=== PATIENT | female | born 1970 | race African-American/Black ===

== ENCOUNTER 2016-09-18 22:00 | Inpatient (IN) | payer OTHER ==
--- NOTE | ~2016-09-18 | PN ---
Unit #: [id number] #: [id number] Patient: LUDMILA SOLIS [id number] [facility] [address] [place] [address] [id number] MR#: [id number] NAME: LUDMILA SOLIS ROOM: 13 Age: 46 Sex: F Admission Date: 09/19/2016 : 1970 Attending Physician: Tyaler Card M.D. Admitting Physician: Tayler Card M.D. Primary Care Physician: Primary Care Physician Rivka MENDOZA PROGRESS NOTES DATE 09/20/2016 DISCUSSION Ms. Solis is a 46-year-old white female who was seen today and chart was reviewed and case was discussed with the staff. She seemed to be anxious, withdrawn, depressed and rather seclusive to herself. Meanwhile, she has been cooperative with treatment recommendations as she has been taking the medications and tolerating them fairly well with no reported side effects. MENTAL STATUS EXAMINATION Middle-aged white female who was casually dressed with fair personal hygiene, appears to be in no acute distress or discomfort. She was awake and alert on interaction with intact orientation. Her mood was anxious and depressed with congruent affect. She denies any suicidal or homicidal ideations. Her insight and judgement remains slightly impaired. TREATMENT PLAN 1. We will continue her on her current medications and treatment protocol. We will monitor her response to the medication and make further adjustments as needed. 2. We will continue to follow up. Dictated by... Marty Diaz/bruce TD: 09/21/2016 03:00 JOB #: [id number] Unit #: [id number] #: [id number] Patient: LUDMILA SOLIS PEAADELSO PROGRESS NOTES Page 1 of 1 X Tayler Card MD PROGRESS NOTE
--- NOTE | ~2016-09-18 | PA ---
Unit #: [id number] #: [id number] Patient: LUDMILA SEALS [id number] [facility] [address] [place] [address] [id number] I MR#: [id number] NAME: LUDMILA SEALS ROOM: P113 Age: 46 Sex: F Admission Date: 09/19/2016 : 1970 Date of Assessment: Attending Physician: Tayler Card M.D. Admitting Physician: Tayler Card M.D. PSYCHIATRIC ASSESSMENT DATE OF SERVICE 09/19/2016. IDENTIFYING DATA Ms. Seals is a 46-year-old female, who is a resident of [place], [place], and was transferred to us from [facility]. CHIEF COMPLAINT "I've been hearing voices telling me to harm myself and others." HISTORY OF PRESENT ILLNESS Ms. Seals is a 46-year-old female with long history of chronic mental illness, who was transferred to us from [facility], where she was brought in reporting increasing depression and command auditory hallucinations and voices telling her to hurt herself and hurt others and reports that she would take a lot of pills or hang herself to hurt herself and asked clinician how to hang herself because she is not sure how to do that and was very sporadic with thoughts and was seen to be disorganized with flight of ideas, looseness of association, moving from one tangent to another, and was a poor historian and was seen to be a significant threat to herself and others, and as such, a recommendation for inpatient level of care for safety and stabilization was made and the patient was medically cleared at the [facility] and then transferred to . 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 PAST PSYCHIATRIC HISTORY The patient has had a history of inpatient psychiatric hospitalization at [facility] and has had outpatient treatment in the past and has been diagnosed and treated for mood disorder on the line of bipolar, and review of the medical records indicate currently she is on a combination of Prozac and Seroquel, but does not appear to be showing a therapeutic response to medications. PAST MEDICAL HISTORY Seizure disorder, gastroesophageal reflux disease, and coronary artery disease. ALLERGIES Unit #: [id number] #: [id number] Patient: LUDMILA SEALS Coreg, ibuprofen, and penicillin. PERSONAL AND SOCIAL HISTORY A 46-year-old female, who reports that she is single, unemployed, and lives by herself and has poor social support system. MENTAL STATUS EXAMINATION Middle-aged female, who was casually dressed with fair personal hygiene, appears to be in no acute distress or discomfort. She was awake and alert on interaction with intact orientation to time, place, and person. Her mood was anxious and depressed with a congruent affect. Her speech was slow and restricted in content. Her thought processes were disorganized with some looseness of associations, flight of ideas, paranoid ideations, and suicidal as well as homicidal ideations. Her insight and judgment remain significantly impaired. DIAGNOSTIC IMPRESSION Psychiatric: Bipolar disorder, most recent episode depressed, recurrent, moderate, with psychosis. Medical: Hypertension, seizure disorder, and gastroesophageal reflux disease. Stressors: Moderate psychosocial stressors. TREATMENT PLAN 1. The patient has presented with a history of mood disorder and psychosis and has been decompensating and will need inpatient hospitalization for safety and stabilization. We will start her back on her home medications. We will adjust the medications and monitor response. 2. Supportive therapy was provided to the patient. 3. Safe, structured, and nourishing environment will be provided. ESTIMATED LENGTH OF STAY 5 to 7 days. ABILITY TO HELP SELF Limited. WILLINGNESS TO HELP SELF The patient appears to be willing to help self. STRENGTHS 1. Communicative. 2. Cooperative. PROBLEMS 1. Chronic dysphoric symptoms. 2. Poor social support system. DISCHARGE CRITERIA This will be contingent upon the patient's ability to show resolution of her depression and anxiety and psychosis and her ability to stay safe to herself, particularly after discharge from the hospital. Dictated by... Tayler Card M.D. IAA/modl Unit #: [id number] #: [id number] Patient: LUDMILA SEALS TD: 09/20/2016 16:00 JOB #: [id number] PSYCHIATRIC ASSESSMENT Page 1 of 1 X Tayler Card MD PSYCHIATRIC ASSESSMENT
--- NOTE | ~2016-09-18 | PN ---
Unit #: [id number] #: [id number] Patient: LUDMILA SOLIS [id number] [facility] [address] [place] [address] [id number] I MR#: [id number] NAME: LUDMILA SOLIS ROOM: [facility] Age: 46 Sex: F Admission Date: 09/19/2016 : 1970 Attending Physician: Tayler Card M.D. Admitting Physician: Tayler Card M.D. Primary Care Physician: Primary Care Physician Rivka MENDOZA PROGRESS NOTES DATE 09/23/2016 DISCUSSION Ms. Solis is a 46-year-old female who was seen today and chart was reviewed and case was discussed with the staff. She has been anxious, withdrawn and rather seclusive to herself. Meanwhile, she has been cooperative with treatment recommendations as she has been taking the medications and tolerating them fairly well with no reported side effects. MENTAL STATUS EXAMINATION Middle-aged female who was casually dressed with fair personal hygiene, appears to be in no acute distress or discomfort. She was awake and alert on interaction with intact orientation. Her mood was anxious with congruent affect. She denies any suicidal or homicidal ideations. Also, denies any auditory or visual hallucinations. Her insight and judgement remains slightly impaired. TREATMENT PLAN 1. We will continue her on her current medications and treatment protocol. We will monitor her response to the medication and make further adjustments as needed. 2. We will continue to follow up. Dictated by... Marty Diaz/bruce TD: 09/24/2016 02:32 JOB #: [id number] Unit #: [id number] #: [id number] Patient: LUDMILA SOLIS PROGRESS NOTES Page 1 of 1 X Tayler Card MD X PROGRESS NOTE
--- NOTE | ~2016-09-18 | PN ---
Unit #: [id number] #: [id number] Patient: LUDMILA SOLIS [id number] [facility] [address] [place] [address] [id number] I MR#: [id number] NAME: LUDMILA SOLIS ROOM: [facility] Age: 46 Sex: F Admission Date: 09/19/2016 : 1970 Attending Physician: Tayler Card M.D. Admitting Physician: Tayler Card M.D. Primary Care Physician: Primary Care Physician Rivka MENDOZA PROGRESS NOTES DATE September 21, 2016 DISCUSSION Ms. Solis is a 46-year-old female, with mood disorder and psychosis, who was seen today and chart was reviewed and the case was discussed with the staff. She has been anxious, withdrawn, disorganized, and rather seclusive to herself. Meanwhile, she has been cooperative with the treatment recommendations and she has been taking the medications and tolerating them fairly well with no reported side effects. MENTAL STATUS EXAMINATION Middle-aged female, who was casually dressed with fair personal hygiene and appears to be in no acute distress or discomfort. She was awake and alert with impaired attention and concentration. Her mood was anxious with a congruent affect. Her speech is slow and tangential. Her thought processes are disorganized with some looseness of associations. Her insight and judgment remain significantly impaired. TREATMENT PLAN 1. We will continue her on her current medications and treatment protocol, and will monitor her response to the medications, and make further adjustments as needed. 2. We will continue to followup. Dictated by... Marty Diaz/geovanny TD: 09/22/2016 12:32 JOB #: [id number] Unit #: [id number] #: [id number] Patient: LUDMILA SOLIS AUSTYNADELSO PROGRESS NOTES Page 1 of 1 X Tayler Card MD PROGRESS NOTE
--- NOTE | ~2016-09-18 | PN ---
Unit #: [id number] #: [id number] Patient: LUDMILA SOLIS [id number] [facility] [address] [place] [address] [id number] I MR#: [id number] NAME: LUDMILA SOLIS ROOM: [facility] Age: 46 Sex: F Admission Date: 09/19/2016 : 1970 Attending Physician: Tayler Card M.D. Admitting Physician: Tayler Card M.D. Primary Care Physician: Primary Care Physician Rivka MENDOZA PROGRESS NOTES DATE 09/24/2016 DISCUSSION Ms. Solis is a 46-year-old female who was seen today and chart was reviewed and case was discussed with the staff. She has been anxious, withdrawn and rather seclusive to herself and appears to be quite disorganized with flight of ideas and difficulty carrying on any meaningful conversation. Meanwhile, she has been taking medications and tolerating them fairly well with no reported side effects. MENTAL STATUS EXAMINATION Middle-aged female who was casually dressed with fair personal hygiene and appears to be in no acute distress or discomfort. She was awake and alert with impaired attention and concentration. Her mood was anxious with congruent affect. She denies any suicidal or homicidal ideations and also denies any auditory or visual hallucinations. Her insight and judgement remains slightly impaired. TREATMENT PLAN 1. Will continue on current medications and treatment protocol. Will monitor her response and make further adjustments as needed. 2. Will continue to follow up. Dictated by... Marty Diaz/naren TD: 09/24/2016 15:46 JOB #: [id number] Unit #: [id number] #: [id number] Patient: LUDMILA SOLIS PEAADELSO PROGRESS NOTES Page 1 of 1 X Tayler Card MD PROGRESS NOTE
--- NOTE | ~2016-09-18 | DS ---
Unit #: [id number] #: [id number] Patient: LUDMILA SEALS [id number] [facility] [address] [place] [address] [id number] I MR#: [id number] NAME: LUDMILA SEALS ROOM: 14 Age: 46 Sex: F Admission Date: 09/19/2016 : 1970 Discharge Date: 09/24/2016 Attending Physician: Tayler Card M.D. Primary Care Physician: Primary Care Physician No DISCHARGE SUMMARY IDENTIFYING DATA Ms. Seals is a 46-year-old white female with history of mood disorder, who was self-referred to the hospital on a voluntary basis. DISCHARGE DIAGNOSES Psychiatric: Bipolar disorder, most recent episode depressed, recurrent, moderate psychosis. Medical: Obesity, seizure disorder, hypertension, chronic obstructive pulmonary disease, dyslipidemia, history of anemia. Stressors: Moderate psychosocial stressors. HISTORY OF PRESENT ILLNESS Please see initial psychiatric evaluation for details. PAST PSYCHIATRIC HISTORY Please see initial psychiatric evaluation for details. PAST MEDICAL HISTORY Please see initial psychiatric evaluation for details. HOSPITAL COURSE The [facility] and was oriented to the hospital environment. Routine p.r.n. medications were initiated and was started back on home medications. Medications were adjusted and she was closely monitored. She was taking the medication regularly and tolerating them fairly well and was able to show a decent and therapeutic response with improvement in depression and anxiety and was denying any suicidal ideations, intent, or plan and was not seen to be danger to self or anyone else and as such, it was decided that she will be discharged home and will continue treatment on an outpatient basis. DISCHARGE CONDITION Stable. PROGNOSIS Fair. Dictated by... Tayler Card M.D. Unit #: [id number] #: [id number] Patient: LUDMILA SEALS IAA/modl TD: 10/29/2016 07:34 JOB #: [id number] DISCHARGE SUMMARY Page 1 of 1 X Tayler Card MD X DISCHARGE SUMMARY
--- NOTE | ~2016-09-18 | PN ---
Unit #: [id number] #: [id number] Patient: LUDMILA SOLIS [id number] [facility] [address] [place] [address] [id number] I MR#: [id number] NAME: LUDMILA SOLIS ROOM: 14 Age: 46 Sex: F Admission Date: 09/19/2016 : 1970 Attending Physician: Tayler Card M.D. Admitting Physician: Tayler Card M.D. Primary Care Physician: Primary Care Physician Rivka PETTIT NOTES DATE 09/22/2016 DISCUSSION Ms. Solis is a 46-year-old female who was seen today and chart was reviewed and case was discussed with the staff. She has been anxious, withdrawn and seclusive to herself. Meanwhile, she has been anxious, withdrawn and rather seclusive to herself. Meanwhile, she has been cooperative with treatment recommendations as she has been taking the medications and tolerating them fairly well with no reported side effects. MENTAL STATUS EXAMINATION Middle-aged female who was casually dressed with fair personal hygiene, appears to be in no acute distress or discomfort. She was awake and alert with impaired attention and concentration. Her mood was anxious with a congruent affect. Her thought processes were disorganized with some looseness of associations and flight of ideas and paranoid ideations. Her insight and judgement remains significantly impaired. TREATMENT PLAN 1. We will continue her on her current medications and treatment protocol. We will monitor her response and make further adjustments as needed. 2. We will continue to follow up. Dictated by... Marty Diaz/bruce TD: 09/23/2016 04:08 JOB #: [id number] Unit #: [id number] #: [id number] Patient: LUDMILA SOLIS PEAADELSO PROGRESS NOTES Page 1 of 1 X Tayler Card MD PROGRESS NOTE
--- NOTE | ~2016-09-18 | HP ---
Unit #: [id number] #: [id number] Patient: LUDMILA SEALS [id number] [place] [address] [id number] I MR#: [id number] NAME: LUDMILA SEALS ROOM: P113 Age: 46 Sex: F Admission Date: 09/19/2016 : 1970 Attending Physician: Tayler Card M.D. Admitting Physician: Tayler Card M.D. Primary Care Physician: Primary Care Physician No HISTORY AND PHYSICAL HISTORY OF PRESENT ILLNESS Ludmila is a 46 year old admitted to [address] [place] [address] reporting auditory hallucinations telling her to hurt herself. PAST MEDICAL HISTORY 1. Morbid obesity. 2. Seizure disorder. 3. High blood pressure. 4. COPD. 5. Chronic anticoagulation therapy. 6. Hyperlipidemia. 7. History of anemia. 8. Overactive bladder. PAST SURGICAL HISTORY 1. Mitral valve replaced, mechanical valve. 2. Inguinal hernia. 3. Oral. ALLERGIES Penicillin, ibuprofen. SOCIAL HISTORY She denies cigarettes, alcohol and illicit drug use. FAMILY HISTORY Medically noncontributory. REVIEW OF SYSTEMS CONSTITUTIONAL: No fever or chills. HEENT: Denies any sore throat, ear pain or runny nose. CARDIOVASCULAR: Denies chest pain, irregular heart rhythm or palpitations. CHEST: Denies shortness of breath or cough. No hemoptysis. GASTROINTESTINAL: Denies nausea, vomiting, diarrhea or chronic constipation. ENDOCRINE: Denies history of increased thirst or urination. No recent significant weight loss or gain. GENITOURINARY: Denies dysuria, frequency, or hematuria. SKIN: Denies any rashes. HEMATOLOGIC: Denies history of increased bleeding or bruising. MUSCULOSKELETAL: Denies any hot, swollen joints. No generalized muscle pain. NEUROLOGIC: Denies problems with vision or speech. No frequent, severe Unit #: [id number] #: [id number] Patient: LUDMILA SEALS headaches. No numbness, tingling or weakness in any extremities. Denies loss of bladder or bowel control. CURRENT MEDICATIONS 1. Protonix 40 mg daily. 2. Detrol 4 mg daily. 3. Lasix 40 mg daily. 4. Ferrous gluconate 324 mg daily. 5. Norvasc 5 mg daily. 6. Prozac 60 mg daily. 7. Aspirin 81 mg daily. 8. Lipitor 10 mg daily. 9. Desyrel 100 mg q.h.s. 10. Seroquel 200 mg q.h.s. 11. Carafate 1 gram b.i.d. 12. Trileptal 150 mg b.i.d. 13. Keppra 500 mg b.i.d. 14. Coreg 12.5 mg b.i.d. 15. Coumadin 7 mg daily. PHYSICAL EXAMINATION GENERAL: Alert, morbidly obese, in no apparent distress. VITAL SIGNS: Blood pressure 114/98, heart rate 100, respirations 16, temperature 98.6. WEIGHT: 210. HEIGHT: 5 feet 9 inches. SKIN: Warm and dry without rash or lesion. HEENT: Normocephalic. TMs not viewed. Oral and nasal passages clear. Conjunctivae clear. PERRLA. EOMs intact. NECK: Supple without lymphadenopathy or thyromegaly. HEART: Rate and rhythm is regular with mechanical click noted. LUNGS: Clear. ABDOMEN: Soft, nontender. : Not done. EXTREMITIES: No evidence of cyanosis, clubbing or edema. Moves all without focal deficit. NEUROLOGICAL: Grossly within normal limits. Cranial Nerves: II: Visual nguyễn are intact. III, IV AND : Extraocular movements are intact. Pupils are equal, round and reactive to light. V: Facial sensation is grossly normal. VII: Facial movements and expression are normal. VIII: Auditory acuity grossly intact. IX, X: Uvula is midline. Phonation is normal. XI: Patient shrugs shoulders and turns head normally. XII: Tongue protrudes in the midline. Sensory and Motor Function: Sensory and motor sensation is grossly normal. Motor: moves all extremities well. Coordination: Gait is normal. Deep Tendon Reflexes: Intact. IMPRESSION Psychiatric admission. RECOMMENDATIONS PSYCHIATRIC: Per psychiatrist. MEDICAL: 1. See no contraindication to participate in facility's activities. 2. Continue Protonix, Detrol, Lasix, ferrous gluconate, Norvasc, aspirin, Lipitor, Carafate, Keppra, Coreg, and Coumadin. Check Unit #: [id number] #: [id number] Patient: LUDMILA SEALS PT/INR, CBC and BMP. MEDICAL PROGNOSIS Good. MEDICAL CONDITION Stable. Dictated by... Avis Lehman P.A.-C. for Marty Erwin/naren TD: 09/20/2016 15:21 JOB #: [id number] HISTORY AND PHYSICAL Page 1 of 1 X Avis Lehman X HISTORY AND PHYSICAL
--- NOTE | ~2016-09-18 | CO ---
Unit #: [id number] #: [id number] Patient: LUDMILA ESALS [id number] [place] [address] [id number] MR#: [id number] NAME: LUDMILA SEALS ROOM: P114 Age: 46 Sex: F Admission Date: 09/19/2016 : 1970 Attending Physician: Tayler Card M.D. Primary Care Physician: Primary Care Physician No Consultation Date: 09/20/2016 CONSULTATION REPORT Ordering provider is Dr. Card. REASON FOR CONSULT Congestion. SUBJECTIVE According to nursing, the patient has been complaining about congestion and cough, and that she can't reason read for about a day. When I approached, the patient asked her symptoms. She refused to talk to me. OBJECTIVE LUNGS: Clear to auscultation bilaterally. VITAL SIGNS: Stable. The remainder of her examination is unremarkable. ASSESSMENT Congestion. PLAN Dr. Card is already placed her on Mucinex. We will add cough drops to the regimen and continue to monitor. Dictated by... Mil Cisneros/ryan TD: 09/21/2016 18:56 JOB #: [id number] CONSULTATION REPORT Page 1 of 1 X FAVIO MERINO APRN CONSULTATION REPORT
[2016-09-20 15:19] LABS: INR 1.5; PROTHROMBIN TIME (PATIENT) 16.7 SECONDS (10.0-11.7)
[2016-09-22 09:49] LABS: INR 1.7
[2016-09-24 09:54] LABS: INR 2.1; PROTHROMBIN TIME (PATIENT) 22.7 SECONDS (10.0-11.7)
== END 2016-09-24 19:23 | disposition home or self-care (01) | DRG 885 ==
LOC: POF 09-19 10:39 → P1S 09-19 10:39 → POF 09-21 16:40 → P1S 09-21 16:41
PROVIDERS: Psychiatry & Neurology Psychiatry
DX: F31.32 Bipolar disorder, current episode depressed, moderate (principal); R45.851 Suicidal ideations; R45.850 Homicidal ideations; F29 Unspecified psychosis not due to a substance or known physiological condition; I10 Essential (primary) hypertension; G40.909 Epilepsy, unspecified, not intractable, without status epilepticus; K21.9 Gastro-esophageal reflux disease without esophagitis; F41.9 Anxiety disorder, unspecified; R09.89 Other specified symptoms and signs involving the circulatory and respiratory systems
CPT/HCPCS: 85610